=== PATIENT | female | born 1970 | race African-American/Black ===

== ENCOUNTER 2022-11-14 08:45 | Inpatient (IN) | payer MEDICAID ==
[~2022-11-14] VITALS: Ht 165.1 cm; Wt 85.7 kg
[~2022-11-14 08:45] MED LIST: ATOR10TA69 MT; DOCU-150 MT; GABA-532 MT; HYDR12.54 MT
[2022-11-14 09:19] LABS: HEMATOCRIT. 24.1 % (36.0-48.0); HEMOGLOBIN. 8.4 g/dL (12.0-16.0); MEAN CORPUSCULAR HEMOGLOBIN 37.8 pg (28.0-32.0); MEAN CORPUSCULAR VOLUME 108.6 fL (81.0-99.0); MEAN PLATELET VOLUME 8.4 fl (7.4-10.4); PLATELET 166 x1000/uL (130-400); RED BLOOD CELL COUNT 2.22 mill/uL (4.2-5.4); RED CELL DISTRIBUTION WIDTH 19.6 % (11.6-14.6)
[2022-11-14 09:29] LABS: CHLORIDE 99 mEq/L (98-107)
[2022-11-14 09:45] LABS: PLATELET ESTIMATE NORMAL
[2022-11-14] MEDS ORDERED: POTASSIUM CHLORIDE 20MEQ TABLET SR PO NR (10:45)
[2022-11-14] MEDS ORDERED: POTASSIUM CHLORIDE INJ 40 MEQ in DEXT 5% WATER 250 ML IV ONE (10:45)
[2022-11-14] MEDS: KCL 20MEQ/100ML X 2 FOR TOTAL KCL 40MEQ/200ML IV SCH ×2 (11:00→13:00)
[2022-11-14 11:34] LABS: FOLIC ACID (FOLATE) SERUM 1.4 ng/mL (>5.38)
[2022-11-14] MEDS ORDERED: FOLIC ACID 1MG TABLET PO NR (12:00)
[2022-11-14] MEDS ORDERED: IOHEXOL-350 100 ML BOTTLE ONE (12:18)
[2022-11-14] MEDS ORDERED: CYANOCOBALAMIN 1000MCG/ML VIAL IM NR (13:00)
[2022-11-14] MEDS ORDERED: DIPHENHYDRAMINE 50MG/ML VIAL IV PRN (14:45)
[2022-11-14] MEDS ORDERED: IPRATROPIUM/ALBUTEROL 0.5-3(2.5)MG/3ML NEB HHN PRN (14:45)
[2022-11-14] MEDS ORDERED: CLONIDINE 0.1MG TABLET PO PRN (14:45)
[2022-11-14] MEDS ORDERED: ONDANSETRON HCL 4MG/2ML INJ IV PRN (14:45)
[2022-11-14] MEDS ORDERED: IPRATROPIUM BROMIDE (0.02%) 0.5MG/2.5ML NEB HHN PRN (15:00)
[2022-11-14] MEDS ORDERED: ALBUTEROL (0.083%) 2.5MG/3ML NEB HHN PRN (15:00)
[2022-11-14 15:30] VITALS: BP 120/72
[2022-11-14 16:00] VITALS: BP 120/72
[2022-11-14] MEDS: SODIUM CHLORIDE 0.9% 1,000 ML IV SCH (16:11)
[2022-11-14] MEDS ORDERED: NALOXONE HCL 0.4MG/ML VIAL IV PRN (17:45)
[2022-11-14] MEDS: DOCUSATE SODIUM 100MG CAPSULE PO SCH (18:51)
[2022-11-14] MEDS: MORPHINE SULFATE 2 MG/ML CPJ (NOT FOR IM USE) IV PRN ×2 (18:51→22:51)
[2022-11-14 20:00] VITALS: BP 106/64
[2022-11-15] VITALS (9 sets, daily range): BP systolic 95–128; BP diastolic 63–83
[2022-11-15 05:58] LABS: CHLORIDE 107 mEq/L (98-107)
[2022-11-15 06:29] LABS: MEAN CORPUSCULAR HEMOGLOBIN 38.2 pg (28.0-32.0); MEAN CORPUSCULAR VOLUME 111.1 fL (81.0-99.0); MEAN PLATELET VOLUME 8.3 fl (7.4-10.4); PLATELET 160 x1000/uL (130-400); RED BLOOD CELL COUNT 1.81 mill/uL (4.2-5.4); RED CELL DISTRIBUTION WIDTH 19.9 % (11.6-14.6)
[2022-11-15 08:18] LABS: HEMATOCRIT. 20.1 % (36.0-48.0); HEMOGLOBIN. 6.9 g/dL (12.0-16.0)
[2022-11-15] MEDS: DOCUSATE SODIUM 100MG CAPSULE PO SCH ×2 (08:31→16:42)
[2022-11-15] MEDS: CYANOCOBALAMIN 1000MCG/ML VIAL IM SCH (08:31)
[2022-11-15] MEDS: MORPHINE SULFATE 2 MG/ML CPJ (NOT FOR IM USE) IV PRN ×2 (09:57→20:18)
[2022-11-15 11:34] LABS: TOTAL IRON BINDING CAPACITY 266 ug/dL (250-450)
[2022-11-15] MEDS: SODIUM CHLORIDE 0.9% 1,000 ML IV SCH (16:43)
[2022-11-15 20:59] LABS: HEMATOCRIT 22.8 % (36.0-48.0); HEMOGLOBIN 7.9 g/dL (12.0-16.0)
[2022-11-16] VITALS: BP 104/74
[2022-11-16] MEDS: SODIUM CHLORIDE 0.9% 1,000 ML IV SCH ×2 (03:30→17:01)
[2022-11-16 03:57] VITALS: BP 108/78
[2022-11-16 06:20] LABS: CHLORIDE 107 mEq/L (98-107)
[2022-11-16 06:23] LABS: HEMATOCRIT. 21.7 % (36.0-48.0); HEMOGLOBIN. 7.7 g/dL (12.0-16.0); MEAN CORPUSCULAR HEMOGLOBIN 37.4 pg (28.0-32.0); MEAN CORPUSCULAR VOLUME 105.2 fL (81.0-99.0); MEAN PLATELET VOLUME 7.9 fl (7.4-10.4); PLATELET 165 x1000/uL (130-400); RED BLOOD CELL COUNT 2.06 mill/uL (4.2-5.4); RED CELL DISTRIBUTION WIDTH 22.2 % (11.6-14.6)
[2022-11-16 08:00] VITALS: BP 106/71
[2022-11-16] MEDS ORDERED: POTASSIUM CHLORIDE 20MEQ TABLET SR PO NR (08:00)
[2022-11-16] MEDS: DOCUSATE SODIUM 100MG CAPSULE PO SCH ×2 (08:36→17:01)
[2022-11-16] MEDS: CYANOCOBALAMIN 1000MCG/ML VIAL IM SCH (08:36)
[2022-11-16] MEDS: IRON SUCROSE COMPLEX 100 MG/5 ML ML IV SCH (08:36)
[2022-11-16] MEDS: MORPHINE SULFATE 2 MG/ML CPJ (NOT FOR IM USE) IV PRN (09:42)
[2022-11-16 12:00] VITALS: BP 103/66
[2022-11-16 14:27] LABS: PLATELET ESTIMATE NORMAL
[2022-11-16 15:53] LABS: NUCLEATED RED BLOOD CELLS 1 /100 WBC; PLATELET ESTIMATE NORMAL
[2022-11-16 16:00] VITALS: BP 121/75
[2022-11-16 16:43] LABS: T4 FREE 1.22 ng/dL (0.76-1.46)
[2022-11-16] MEDS ORDERED: GADOTERATE MEGLUMINE 5 MMOL/10 ML VIAL IV ONE (19:30)
[2022-11-16 20:00] VITALS: BP 107/73
[2022-11-17 00:31] VITALS: BP 112/66
[2022-11-17 04:00] VITALS: BP 113/84
[2022-11-17] MEDS: SODIUM CHLORIDE 0.9% 1,000 ML IV SCH ×2 (06:22→16:59)
[2022-11-17 08:00] VITALS: BP 115/76
[2022-11-17] MEDS: CYANOCOBALAMIN 1000MCG/ML VIAL IM SCH (08:52)
[2022-11-17] MEDS: IRON SUCROSE COMPLEX 100 MG/5 ML ML IV SCH (08:52)
[2022-11-17] MEDS: DOCUSATE SODIUM 100MG CAPSULE PO SCH ×2 (08:52→16:59)
[2022-11-17 12:00] VITALS: BP 124/87
[2022-11-17 16:00] VITALS: BP 104/76
[2022-11-17 19:58] VITALS: BP 118/76
[2022-11-17] MEDS: MORPHINE SULFATE 2 MG/ML CPJ (NOT FOR IM USE) IV PRN (19:59)
[2022-11-17] MEDS ORDERED: FOLIC ACID 1 MG in SODIUM CHLORIDE 0.9% 500 ML IV ONE (20:00)
[2022-11-18] VITALS: BP 112/76
[2022-11-18 04:00] VITALS: BP 118/74
[2022-11-18] MEDS: SODIUM CHLORIDE 0.9% 1,000 ML IV SCH ×2 (05:18→18:45)
[2022-11-18 08:00] VITALS: BP 121/81
[2022-11-18] MEDS: DOCUSATE SODIUM 100MG CAPSULE PO SCH ×2 (09:00→17:00)
[2022-11-18] MEDS: CYANOCOBALAMIN 1000MCG/ML VIAL IM SCH (10:12)
[2022-11-18] MEDS: IRON SUCROSE COMPLEX 100 MG/5 ML ML IV SCH (10:12)
[2022-11-18] MEDS: FOLIC ACID 1MG TABLET PO SCH (10:13)
[2022-11-18 12:00] VITALS: BP 114/74
[2022-11-18 16:00] VITALS: BP 115/65
[2022-11-18 20:00] VITALS: BP 123/83
[2022-11-18] MEDS: MORPHINE SULFATE 2 MG/ML CPJ (NOT FOR IM USE) IV PRN (20:20)
[2022-11-19] VITALS: BP 108/69
[2022-11-19 04:00] VITALS: BP 117/75
[2022-11-19] MEDS: SODIUM CHLORIDE 0.9% 1,000 ML IV SCH ×2 (06:23→20:12)
[2022-11-19 08:00] VITALS: BP 116/80
[2022-11-19] MEDS: CYANOCOBALAMIN 1000MCG/ML VIAL IM SCH (08:11)
[2022-11-19] MEDS: DOCUSATE SODIUM 100MG CAPSULE PO SCH ×3 (08:11→17:00)
[2022-11-19] MEDS: FOLIC ACID 1MG TABLET PO SCH (08:11)
[2022-11-19] MEDS: MORPHINE SULFATE 2 MG/ML CPJ (NOT FOR IM USE) IV PRN ×2 (10:37→21:35)
[2022-11-19 12:00] VITALS: BP 125/86
[2022-11-19 16:00] VITALS: BP 125/84
[2022-11-19 16:08] LABS: BASOPHILS % 0.4 % (0.0-2.0); EOSINOPHILS % 1.2 % (0.0-5.0); HEMATOCRIT. 30.4 % (36.0-48.0); LYMPHOCYTES % 43.7 % (20.0-50.0); MEAN CORPUSCULAR HEMOGLOBIN 35.3 pg (28.0-32.0); MEAN CORPUSCULAR VOLUME 107.2 fL (81.0-99.0); MEAN PLATELET VOLUME 8.6 fl (7.4-10.4); NEUTROPHILS % 45.7 % (40.0-76.0); PLATELET 308 x1000/uL (130-400); RED BLOOD CELL COUNT 2.83 mill/uL (4.2-5.4); RED CELL DISTRIBUTION WIDTH 20.8 % (11.6-14.6)
[2022-11-19 16:30] LABS: CHLORIDE 107 mEq/L (98-107)
[2022-11-19 20:00] VITALS: BP 101/72
[2022-11-19] MEDS: ACETAMINOPHEN 325MG TABLET PO PRN (21:16)
[2022-11-20] VITALS: BP 111/88
[2022-11-20 04:00] VITALS: BP 131/68
[2022-11-20 08:00] VITALS: BP 128/88
[2022-11-20] MEDS: FOLIC ACID 1MG TABLET PO SCH (08:48)
[2022-11-20] MEDS: DOCUSATE SODIUM 100MG CAPSULE PO SCH ×2 (08:48→17:00)
[2022-11-20] MEDS: CYANOCOBALAMIN 1000MCG/ML VIAL IM SCH (08:48)
[2022-11-20] MEDS: SODIUM CHLORIDE 0.9% 1,000 ML IV SCH ×2 (08:48→21:22)
[2022-11-20] MEDS ORDERED: FOLI-43 PO (11:06)
[2022-11-20 12:00] VITALS: BP 119/89
[2022-11-20 16:00] VITALS: BP 111/81
[2022-11-20 20:00] VITALS: BP 130/88
[2022-11-20] MEDS: MORPHINE SULFATE 2 MG/ML CPJ (NOT FOR IM USE) IV PRN (21:38)
[2022-11-21] VITALS: BP 124/69
[2022-11-21 04:00] VITALS: BP 115/77
[2022-11-21 08:00] VITALS: BP 125/83
[2022-11-21] MEDS: FOLIC ACID 1MG TABLET PO SCH (09:46)
[2022-11-21] MEDS: DOCUSATE SODIUM 100MG CAPSULE PO SCH ×2 (09:46→17:00)
[2022-11-21] MEDS: SODIUM CHLORIDE 0.9% 1,000 ML IV SCH (09:46)
[2022-11-21 12:00] VITALS: BP 122/82
[2022-11-21] MEDS ORDERED: CYANOCOBALAMIN 1000MCG/ML VIAL IM NR (15:45)
[2022-11-21 16:00] VITALS: BP 127/89
[2022-11-21 19:57] VITALS: BP 128/89
[2022-11-21] MEDS: MORPHINE SULFATE 2 MG/ML CPJ (NOT FOR IM USE) IV PRN (20:21)
[2022-11-22] VITALS (7 sets, daily range): BP systolic 111–144; BP diastolic 63–91
[2022-11-22] MEDS: SODIUM CHLORIDE 0.9% 1,000 ML IV SCH ×3 (02:56→21:41)
[2022-11-22] MEDS: FOLIC ACID 1MG TABLET PO SCH (09:01)
[2022-11-22] MEDS: DOCUSATE SODIUM 100MG CAPSULE PO SCH ×2 (09:02→17:00)
[2022-11-22] MEDS: MORPHINE SULFATE 2 MG/ML CPJ (NOT FOR IM USE) IV PRN (21:42)
[2022-11-23 04:00] VITALS: BP 130/85
[2022-11-23 08:00] VITALS: BP 142/90
[2022-11-23] MEDS: DOCUSATE SODIUM 100MG CAPSULE PO SCH ×2 (08:38→16:24)
[2022-11-23] MEDS: FOLIC ACID 1MG TABLET PO SCH (08:38)
[2022-11-23] MEDS: SODIUM CHLORIDE 0.9% 1,000 ML IV SCH (11:01)
[2022-11-23 12:00] VITALS: BP 137/100
[2022-11-23 16:00] VITALS: BP 134/91
[2022-11-23] MEDS: ACETAMINOPHEN 325MG TABLET PO PRN (16:24)
[2022-11-23 20:00] VITALS: BP 122/71
[2022-11-23] MEDS: MORPHINE SULFATE 2 MG/ML CPJ (NOT FOR IM USE) IV PRN (21:38)
[2022-11-23 22:04] VITALS: BP 122/71
== END 2022-11-23 22:42 | DRG 663 ==
LOC: ER 08:45 → MICUSO 13:05 → EDBEDREQTM 13:36 → EDBEDREQ 13:36 → 8WST 15:34
PROVIDERS: ADMIT Internal Medicine; ATTEND Internal Medicine
PROC: 30233N1 Transfusion of Nonautologous Red Blood Cells into Peripheral Vein, Percutaneous Approach (ICD-10-PCS; principal; 2022-11-15)
DX: D51.3 Other dietary vitamin B12 deficiency anemia (principal); D68.69 Other thrombophilia; E78.00 Pure hypercholesterolemia, unspecified; E87.6 Hypokalemia; I10 Essential (primary) hypertension; J45.909 Unspecified asthma, uncomplicated; Z20.822 Contact with and (suspected) exposure to COVID-19; M47.9 Spondylosis, unspecified; Z96.649 Presence of unspecified artificial hip joint; Z96.651 Presence of right artificial knee joint; Z79.899 Other long term (current) drug therapy; E86.0 Dehydration; D52.9 Folate deficiency anemia, unspecified
CPT/HCPCS: 36415; 70553; 71045; 71275; 72141; 72146; 72148; 80048; 80053; 82607; 82746; 83540; 83550; 83880; 84439; 84443; 84484; 85014; 85018; 85025; 85379; 86340; 86850; 86900; 86920; 87426; 93005; 93970; 97110; 97162; 97166; 97530; 97535; 99285; A9577; C1893; C9803; J2270; J3420; J3480; J3490; J7030; J7040; L1830; P9016; Q9967

== ENCOUNTER 2022-11-23 22:25 | Inpatient (IN) | payer MEDICAID ==
[~2022-11-23] VITALS: Ht 165.1 cm; Wt 90.7 kg
[2022-11-23 22:25] VITALS: BP 135/90
[~2022-11-23 22:25] MED LIST changes: +FOLI-43 PO
[2022-11-24] VITALS: BP 133/85
[2022-11-24] MEDS ORDERED: DIPHENHYDRAMINE 50MG/ML VIAL IM PRN
[2022-11-24] MEDS ORDERED: CLONIDINE 0.1MG TABLET PO PRN
[2022-11-24] MEDS ORDERED: NALOXONE HCL 0.4 MG/ML 1ML VIAL IV PRN
[2022-11-24] MEDS ORDERED: ACETAMINOPHEN 650MG/20.3ML UDC PO PRN
[2022-11-24] MEDS ORDERED: ONDANSETRON HCL 4MG/2ML INJ IV PRN
[2022-11-24] MEDS: MORPHINE SULFATE 2 MG/ML CPJ (NOT FOR IM USE) IV PRN (05:38)
[2022-11-24 07:00] LABS: BASOPHILS % 0.6 % (0.0-2.0); EOSINOPHILS % 1.4 % (0.0-5.0); HEMATOCRIT. 27.1 % (36.0-48.0); HEMOGLOBIN. 9.1 g/dL (12.0-16.0); LYMPHOCYTES % 26.4 % (20.0-50.0); MEAN CORPUSCULAR HEMOGLOBIN 34.8 pg (28.0-32.0); MEAN CORPUSCULAR VOLUME 103.2 fL (81.0-99.0); MONOCYTES % 9.3 % (2.0-8.0); NEUTROPHILS % 62.3 % (40.0-76.0); PLATELET 269 x1000/uL (130-400); RED BLOOD CELL COUNT 2.62 mill/uL (4.2-5.4); RED CELL DISTRIBUTION WIDTH 20.3 % (11.6-14.6)
[2022-11-24 08:00] VITALS: BP 137/86
[2022-11-24] MEDS: DOCUSATE SODIUM 100MG CAPSULE PO SCH ×2 (08:18→16:59)
[2022-11-24] MEDS: FOLIC ACID 1MG TABLET PO SCH (08:18)
[2022-11-24 08:24] LABS: CHLORIDE 110 mEq/L (98-107)
[2022-11-24] MEDS: SODIUM CHLORIDE 0.9% 1,000 ML IV SCH ×2 (12:15)
[2022-11-24] MEDS: HYDROCODONE/ACETAMINOPHEN 5/325MG TABLET PO PRN ×2 (12:25→21:44)
[2022-11-24] MEDS: CYANOCOBALAMIN 1000MCG/ML VIAL IM SCH (16:59)
[2022-11-24 20:00] VITALS: BP 136/99
[2022-11-25] MEDS: MORPHINE SULFATE 2 MG/ML CPJ (NOT FOR IM USE) IV PRN (00:30)
[2022-11-25] MEDS: SODIUM CHLORIDE 0.9% 1,000 ML IV SCH ×2 (01:00→13:30)
[2022-11-25 07:07] LABS: BASOPHILS % 0.7 % (0.0-2.0); CHLORIDE 110 mEq/L (98-107); EOSINOPHILS % 2.4 % (0.0-5.0); HEMATOCRIT. 26.5 % (36.0-48.0); HEMOGLOBIN. 8.9 g/dL (12.0-16.0); LYMPHOCYTES % 34.8 % (20.0-50.0); MEAN CORPUSCULAR HEMOGLOBIN 34.2 pg (28.0-32.0); MEAN CORPUSCULAR VOLUME 102.4 fL (81.0-99.0); NEUTROPHILS % 50.1 % (40.0-76.0); PLATELET 255 x1000/uL (130-400); RED BLOOD CELL COUNT 2.59 mill/uL (4.2-5.4)
[2022-11-25 08:00] VITALS: BP 139/97
[2022-11-25] MEDS ORDERED: POTASSIUM CHLORIDE 10MEQ TABLET SR PO NR (08:30)
[2022-11-25] MEDS: DOCUSATE SODIUM 100MG CAPSULE PO SCH ×2 (09:14→17:58)
[2022-11-25] MEDS: FOLIC ACID 1MG TABLET PO SCH (09:14)
[2022-11-25] MEDS: CYANOCOBALAMIN 1000MCG/ML VIAL IM SCH (09:14)
[2022-11-25] MEDS: HYDROCODONE/ACETAMINOPHEN 10/325MG TABLET PO PRN (15:05)
[2022-11-26] MEDS: HYDROCODONE/ACETAMINOPHEN 10/325MG TABLET PO PRN ×2 (00:03→18:05)
[2022-11-26] MEDS: SODIUM CHLORIDE 0.9% 1,000 ML IV SCH ×2 (02:00→12:38)
[2022-11-26] MEDS: MORPHINE SULFATE 2 MG/ML CPJ (NOT FOR IM USE) IV PRN ×2 (04:02→22:20)
[2022-11-26 08:35] VITALS: BP 122/76
[2022-11-26] MEDS: ASCORBIC ACID 500 MG TABLET PO SCH ×2 (09:00→17:56)
[2022-11-26] MEDS: FERROUS SULFATE 325MG TABLET PO SCH ×2 (09:00→17:56)
[2022-11-26] MEDS: DOCUSATE SODIUM 100MG CAPSULE PO SCH ×2 (09:00→17:56)
[2022-11-26] MEDS: FOLIC ACID 1MG TABLET PO SCH (09:00)
[2022-11-26] MEDS: CYANOCOBALAMIN 1000MCG/ML VIAL IM SCH (09:00)
[2022-11-26 20:00] VITALS: BP 151/95
[2022-11-27] MEDS: SODIUM CHLORIDE 0.9% 1,000 ML IV SCH ×2 (02:30→14:45)
[2022-11-27 05:58] LABS: BASOPHILS % 0.7 % (0.0-2.0); EOSINOPHILS % 1.3 % (0.0-5.0); HEMOGLOBIN. 9.1 g/dL (12.0-16.0); LYMPHOCYTES % 29.2 % (20.0-50.0); MEAN CORPUSCULAR HEMOGLOBIN 32.8 pg (28.0-32.0); MEAN CORPUSCULAR VOLUME 100.6 fL (81.0-99.0); MEAN PLATELET VOLUME 8.8 fl (7.4-10.4); MONOCYTES % 10.1 % (2.0-8.0); NEUTROPHILS % 58.7 % (40.0-76.0); PLATELET 233 x1000/uL (130-400); RED BLOOD CELL COUNT 2.78 mill/uL (4.2-5.4)
[2022-11-27 06:09] LABS: CHLORIDE 109 mEq/L (98-107)
[2022-11-27 08:00] VITALS: BP 135/91
[2022-11-27] MEDS: DOCUSATE SODIUM 100MG CAPSULE PO SCH ×2 (09:00→18:03)
[2022-11-27] MEDS: ASCORBIC ACID 500 MG TABLET PO SCH ×2 (10:11→18:03)
[2022-11-27] MEDS: CYANOCOBALAMIN 1000MCG/ML VIAL IM SCH (10:11)
[2022-11-27] MEDS: FOLIC ACID 1MG TABLET PO SCH (10:11)
[2022-11-27] MEDS: FERROUS SULFATE 325MG TABLET PO SCH ×2 (10:11→18:03)
[2022-11-27] MEDS: HYDROCODONE/ACETAMINOPHEN 10/325MG TABLET PO PRN (15:01)
[2022-11-27 19:30] VITALS: BP 132/78
[2022-11-27] MEDS: MORPHINE SULFATE 2 MG/ML CPJ (NOT FOR IM USE) IV PRN (22:54)
[2022-11-28] MEDS: SODIUM CHLORIDE 0.9% 1,000 ML IV SCH ×2 (04:00→16:30)
[2022-11-28 08:00] VITALS: BP 138/88
[2022-11-28] MEDS ORDERED: CYANOCOBALAMIN 1000MCG/ML VIAL IM SCH (09:00)
[2022-11-28] MEDS: FERROUS SULFATE 325MG TABLET PO SCH ×2 (10:21→18:10)
[2022-11-28] MEDS: CYANOCOBALAMIN 1000MCG/ML VIAL IM SCH (10:22)
[2022-11-28] MEDS: FOLIC ACID 1MG TABLET PO SCH (10:22)
[2022-11-28] MEDS: ASCORBIC ACID 500 MG TABLET PO SCH ×2 (10:22→18:10)
[2022-11-28] MEDS: DOCUSATE SODIUM 100MG CAPSULE PO SCH ×2 (10:22→18:10)
[2022-11-28] MEDS: HYDROCODONE/ACETAMINOPHEN 10/325MG TABLET PO PRN (16:34)
[2022-11-28 19:38] VITALS: BP 163/102
[2022-11-28] MEDS: MIRTAZAPINE 15MG TABLET PO SCH ×2 (21:52→21:53)
[2022-11-28] MEDS: MORPHINE SULFATE 2 MG/ML CPJ (NOT FOR IM USE) IV PRN (22:50)
[2022-11-29] MEDS: SODIUM CHLORIDE 0.9% 1,000 ML IV SCH ×2 (05:00→17:30)
[2022-11-29 08:00] VITALS: BP 135/92
[2022-11-29] MEDS: CYANOCOBALAMIN 1000MCG/ML VIAL IM SCH (08:11)
[2022-11-29] MEDS: DOCUSATE SODIUM 100MG CAPSULE PO SCH ×2 (08:33→17:35)
[2022-11-29] MEDS: ASCORBIC ACID 500 MG TABLET PO SCH ×2 (08:33→17:35)
[2022-11-29] MEDS: FOLIC ACID 1MG TABLET PO SCH (08:34)
[2022-11-29] MEDS: FERROUS SULFATE 325MG TABLET PO SCH ×2 (08:34→17:35)
[2022-11-29] MEDS ORDERED: NALOXONE HCL 0.4MG/ML VIAL IV PRN (09:45)
[2022-11-29] MEDS: HYDROCODONE/ACETAMINOPHEN 10/325MG TABLET PO PRN ×2 (15:56→22:01)
[2022-11-29] MEDS: DIPHENHYDRAMINE 25MG CAPSULE PO PRN (17:35)
[2022-11-29 20:00] VITALS: BP 134/91
[2022-11-29] MEDS: MIRTAZAPINE 15MG TABLET PO SCH (22:01)
[2022-11-30] MEDS: SODIUM CHLORIDE 0.9% 1,000 ML IV SCH ×2 (06:00→17:37)
[2022-11-30 08:00] VITALS: BP 140/84
[2022-11-30] MEDS: HYDROCODONE/ACETAMINOPHEN 10/325MG TABLET PO PRN ×3 (08:23→21:37)
[2022-11-30] MEDS: ASCORBIC ACID 500 MG TABLET PO SCH ×2 (09:19→16:17)
[2022-11-30] MEDS: FERROUS SULFATE 325MG TABLET PO SCH ×2 (09:19→16:17)
[2022-11-30] MEDS: DOCUSATE SODIUM 100MG CAPSULE PO SCH ×2 (09:19→17:00)
[2022-11-30] MEDS: FOLIC ACID 1MG TABLET PO SCH (09:20)
[2022-11-30] MEDS: CYANOCOBALAMIN 1000MCG/ML VIAL IM SCH (09:20)
[2022-11-30 20:00] VITALS: BP 125/81
[2022-11-30] MEDS: TRAZODONE HCL 50MG TABLET PO SCH (21:25)
[2022-12-01] MEDS: SODIUM CHLORIDE 0.9% 1,000 ML IV SCH ×2 (07:49→19:30)
[2022-12-01 08:00] VITALS: BP 122/81
[2022-12-01] MEDS: FOLIC ACID 1MG TABLET PO SCH (08:30)
[2022-12-01] MEDS: ASCORBIC ACID 500 MG TABLET PO SCH ×2 (08:30→18:06)
[2022-12-01] MEDS: DOCUSATE SODIUM 100MG CAPSULE PO SCH ×2 (08:30→18:05)
[2022-12-01] MEDS: FERROUS SULFATE 325MG TABLET PO SCH ×2 (08:30→17:00)
[2022-12-01] MEDS: HYDROCODONE/ACETAMINOPHEN 10/325MG TABLET PO PRN ×3 (08:31→21:24)
[2022-12-01 19:35] VITALS: BP 119/80
[2022-12-01] MEDS: MIRTAZAPINE 15MG TABLET PO SCH (21:13)
[2022-12-01] MEDS: TRAZODONE HCL 50MG TABLET PO SCH (21:14)
[2022-12-02 08:00] VITALS: BP 123/69
[2022-12-02] MEDS: SODIUM CHLORIDE 0.9% 1,000 ML IV SCH (08:00)
[2022-12-02] MEDS: FERROUS SULFATE 325MG TABLET PO SCH ×2 (09:00→17:00)
[2022-12-02] MEDS: ASCORBIC ACID 500 MG TABLET PO SCH ×2 (09:13→17:50)
[2022-12-02] MEDS: FOLIC ACID 1MG TABLET PO SCH (09:13)
[2022-12-02] MEDS: HYDROCODONE/ACETAMINOPHEN 10/325MG TABLET PO PRN ×2 (09:15→17:52)
[2022-12-02] MEDS: DOCUSATE SODIUM 100MG CAPSULE PO SCH ×2 (09:15→17:50)
[2022-12-02 20:00] VITALS: BP 138/90
[2022-12-02] MEDS: TRAZODONE HCL 50MG TABLET PO SCH (21:45)
[2022-12-02] MEDS: MIRTAZAPINE 15MG TABLET PO SCH (21:45)
[2022-12-03 08:00] VITALS: BP 133/85
[2022-12-03] MEDS: DOCUSATE SODIUM 100MG CAPSULE PO SCH ×3 (09:00→16:46)
[2022-12-03] MEDS: SODIUM CHLORIDE 0.9% 1,000 ML IV SCH ×2 (09:07→21:30)
[2022-12-03] MEDS: ASCORBIC ACID 500 MG TABLET PO SCH ×2 (09:08→16:45)
[2022-12-03] MEDS: FOLIC ACID 1MG TABLET PO SCH (09:10)
[2022-12-03] MEDS: FERROUS SULFATE 325MG TABLET PO SCH ×2 (09:10→16:46)
[2022-12-03] MEDS: HYDROCODONE/ACETAMINOPHEN 10/325MG TABLET PO PRN ×2 (14:08→21:34)
[2022-12-03 20:00] VITALS: BP 142/88
[2022-12-03] MEDS: MIRTAZAPINE 15MG TABLET PO SCH (21:31)
[2022-12-03] MEDS: TRAZODONE HCL 50MG TABLET PO SCH (21:32)
[2022-12-04 08:00] VITALS: BP 143/95
[2022-12-04] MEDS: DOCUSATE SODIUM 100MG CAPSULE PO SCH ×2 (09:11→16:57)
[2022-12-04] MEDS: FERROUS SULFATE 325MG TABLET PO SCH ×2 (09:11→16:57)
[2022-12-04] MEDS: FOLIC ACID 1MG TABLET PO SCH (09:11)
[2022-12-04] MEDS: ASCORBIC ACID 500 MG TABLET PO SCH ×2 (09:12→16:57)
[2022-12-04] MEDS: HYDROCODONE/ACETAMINOPHEN 10/325MG TABLET PO PRN (09:12)
[2022-12-04] MEDS: SODIUM CHLORIDE 0.9% 1,000 ML IV SCH (10:00)
[2022-12-04 20:00] VITALS: BP 141/96
[2022-12-05] MEDS: ONDANSETRON 4MG ODT SL PRN ×3 (00:23→19:01)
[2022-12-05] MEDS: MIRTAZAPINE 15MG TABLET PO SCH ×2 (00:40→20:59)
[2022-12-05] MEDS: TRAZODONE HCL 50MG TABLET PO SCH ×2 (00:40→15:36)
[2022-12-05 08:00] VITALS: BP 118/63
[2022-12-05] MEDS: DOCUSATE SODIUM 100MG CAPSULE PO SCH ×2 (09:00→17:46)
[2022-12-05] MEDS: ASCORBIC ACID 500 MG TABLET PO SCH ×2 (09:11→17:47)
[2022-12-05] MEDS: FOLIC ACID 1MG TABLET PO SCH (09:11)
[2022-12-05] MEDS: FERROUS SULFATE 325MG TABLET PO SCH ×2 (09:12→17:46)
[2022-12-05] MEDS ORDERED: NALOXONE HCL 0.4MG/ML VIAL IV PRN (18:45)
[2022-12-05] MEDS: HYDROCODONE/ACETAMINOPHEN 10/325MG TABLET PO PRN (19:00)
[2022-12-05 20:16] VITALS: BP 124/90
[2022-12-05] MEDS: SODIUM CHLORIDE 0.9% 1,000 ML IV SCH (22:54)
[2022-12-06 08:00] VITALS: BP 130/86
[2022-12-06] MEDS: DOCUSATE SODIUM 100MG CAPSULE PO SCH ×2 (08:23→17:06)
[2022-12-06] MEDS: FOLIC ACID 1MG TABLET PO SCH (08:24)
[2022-12-06] MEDS: ASCORBIC ACID 500 MG TABLET PO SCH ×2 (08:25→17:09)
[2022-12-06] MEDS: FERROUS SULFATE 325MG TABLET PO SCH ×2 (08:25→17:09)
[2022-12-06] MEDS: HYDROCODONE/ACETAMINOPHEN 10/325MG TABLET PO PRN ×3 (08:28→22:15)
[2022-12-06] MEDS: DIPHENHYDRAMINE 25MG CAPSULE PO PRN (14:39)
[2022-12-06] MEDS: SODIUM CHLORIDE 0.9% 1,000 ML IV SCH (14:42)
[2022-12-06 19:47] VITALS: BP 131/84
[2022-12-06] MEDS: MIRTAZAPINE 15MG TABLET PO SCH (22:08)
[2022-12-06] MEDS: TRAZODONE HCL 50MG TABLET PO SCH (22:09)
[2022-12-07] MEDS: SODIUM CHLORIDE 0.9% 1,000 ML IV SCH ×2 (00:30→13:00)
[2022-12-07 08:00] VITALS: BP 122/80
[2022-12-07] MEDS: ASCORBIC ACID 500 MG TABLET PO SCH ×2 (08:28→17:29)
[2022-12-07] MEDS: FOLIC ACID 1MG TABLET PO SCH (08:28)
[2022-12-07] MEDS: HYDROCODONE/ACETAMINOPHEN 10/325MG TABLET PO PRN ×3 (08:28→22:55)
[2022-12-07] MEDS: DOCUSATE SODIUM 100MG CAPSULE PO SCH ×2 (08:28→17:29)
[2022-12-07] MEDS: FERROUS SULFATE 325MG TABLET PO SCH ×2 (08:29→17:29)
[2022-12-07] MEDS ORDERED: CYANOCOBALAMIN 1000MCG/ML VIAL IM NR (09:00)
[2022-12-07] MEDS ORDERED: FUROSEMIDE 20MG TABLET PO NR (17:15)
[2022-12-07 20:00] VITALS: BP 111/79
[2022-12-07] MEDS: TRAZODONE HCL 50MG TABLET PO SCH (21:46)
[2022-12-07] MEDS: MIRTAZAPINE 15MG TABLET PO SCH (21:46)
[2022-12-08] MEDS: SODIUM CHLORIDE 0.9% 1,000 ML IV SCH ×2 (01:30→14:00)
[2022-12-08 06:32] LABS: BASOPHILS % 0.8 % (0.0-2.0); EOSINOPHILS % 1.7 % (0.0-5.0); HEMATOCRIT. 31.8 % (36.0-48.0); HEMOGLOBIN. 10.6 g/dL (12.0-16.0); LYMPHOCYTES % 39.6 % (20.0-50.0); MEAN CORPUSCULAR HEMOGLOBIN 31.5 pg (28.0-32.0); MEAN CORPUSCULAR VOLUME 94.9 fL (81.0-99.0); MEAN PLATELET VOLUME 9.6 fl (7.4-10.4); MONOCYTES % 9.4 % (2.0-8.0); NEUTROPHILS % 48.5 % (40.0-76.0); PLATELET 170 x1000/uL (130-400); RED BLOOD CELL COUNT 3.35 mill/uL (4.2-5.4); RED CELL DISTRIBUTION WIDTH 17.8 % (11.6-14.6)
[2022-12-08 08:00] VITALS: BP 130/93
[2022-12-08 08:08] LABS: CHLORIDE 104 mEq/L (98-107)
[2022-12-08] MEDS: FERROUS SULFATE 325MG TABLET PO SCH ×2 (09:03→17:11)
[2022-12-08] MEDS: ASCORBIC ACID 500 MG TABLET PO SCH ×2 (09:03→17:11)
[2022-12-08] MEDS: DOCUSATE SODIUM 100MG CAPSULE PO SCH ×2 (09:03→17:10)
[2022-12-08] MEDS: FOLIC ACID 1MG TABLET PO SCH (09:03)
[2022-12-08] MEDS: HYDROCODONE/ACETAMINOPHEN 10/325MG TABLET PO PRN ×3 (09:14→23:24)
[2022-12-08] MEDS ORDERED: POTASSIUM CHLORIDE 10MEQ TABLET SR PO NR (15:45)
[2022-12-08 20:00] VITALS: BP 118/72
[2022-12-08] MEDS: MIRTAZAPINE 15MG TABLET PO SCH (21:40)
[2022-12-08] MEDS: DIPHENHYDRAMINE 25MG CAPSULE PO PRN (21:40)
[2022-12-08] MEDS: TRAZODONE HCL 50MG TABLET PO SCH (21:40)
[2022-12-09 08:00] VITALS: BP 118/81
[2022-12-09] MEDS: DOCUSATE SODIUM 100MG CAPSULE PO SCH ×2 (08:31→16:41)
[2022-12-09] MEDS: FOLIC ACID 1MG TABLET PO SCH (08:32)
[2022-12-09] MEDS: FERROUS SULFATE 325MG TABLET PO SCH ×2 (08:32→16:41)
[2022-12-09] MEDS: HYDROCODONE/ACETAMINOPHEN 5/325MG TABLET PO PRN ×2 (08:35→16:58)
[2022-12-09] MEDS: ASCORBIC ACID 500 MG TABLET PO SCH ×2 (09:00→16:41)
[2022-12-09] MEDS: SODIUM CHLORIDE 0.9% 1,000 ML IV SCH (15:00)
[2022-12-09] MEDS: HYDROCODONE/ACETAMINOPHEN 10/325MG TABLET PO PRN ×2 (16:54→23:01)
[2022-12-09 20:02] VITALS: BP 113/79
[2022-12-09] MEDS: MIRTAZAPINE 15MG TABLET PO SCH (20:36)
[2022-12-09] MEDS: TRAZODONE HCL 50MG TABLET PO SCH (20:36)
[2022-12-10 08:00] VITALS: BP 120/88
[2022-12-10] MEDS: DOCUSATE SODIUM 100MG CAPSULE PO SCH (09:12)
[2022-12-10] MEDS: HYDROCODONE/ACETAMINOPHEN 10/325MG TABLET PO PRN ×3 (09:13→22:18)
[2022-12-10] MEDS: FOLIC ACID 1MG TABLET PO SCH (09:14)
[2022-12-10] MEDS: ASCORBIC ACID 500 MG TABLET PO SCH ×2 (09:14→17:34)
[2022-12-10] MEDS: FERROUS SULFATE 325MG TABLET PO SCH ×2 (09:14→17:33)
[2022-12-10] MEDS: POLYETHYLENE GLYCOL 3350 (17GM) 1 DOSE PACK PO SCH (16:11)
[2022-12-10] MEDS: DOCUSATE SODIUM 250MG CAPSULE PO SCH ×2 (16:11→17:00)
[2022-12-10] MEDS: DIPHENHYDRAMINE 25MG CAPSULE PO PRN (18:50)
[2022-12-10 19:38] VITALS: BP 124/81
[2022-12-10] MEDS: MIRTAZAPINE 15MG TABLET PO SCH (20:43)
[2022-12-10] MEDS: TRAZODONE HCL 50MG TABLET PO SCH (20:44)
[2022-12-11 08:00] VITALS: BP 128/78
[2022-12-11] MEDS: DOCUSATE SODIUM 250MG CAPSULE PO SCH ×2 (10:45→17:14)
[2022-12-11] MEDS: FOLIC ACID 1MG TABLET PO SCH (10:45)
[2022-12-11] MEDS: FERROUS SULFATE 325MG TABLET PO SCH ×2 (10:45→17:14)
[2022-12-11] MEDS: POLYETHYLENE GLYCOL 3350 (17GM) 1 DOSE PACK PO SCH (10:45)
[2022-12-11] MEDS: ASCORBIC ACID 500 MG TABLET PO SCH ×2 (10:46→17:14)
[2022-12-11] MEDS ORDERED: NALOXONE HCL 0.4MG/ML VIAL IV PRN ×2 (11:15→15:45)
[2022-12-11] MEDS: HYDROCODONE/ACETAMINOPHEN 5/325MG TABLET PO PRN (13:03)
[2022-12-11] MEDS ORDERED: SORBITOL 70% SOLN 30ML PO NR (15:30)
[2022-12-11 20:00] VITALS: BP 130/85
[2022-12-11] MEDS: MIRTAZAPINE 15MG TABLET PO SCH (21:00)
[2022-12-11] MEDS: TRAZODONE HCL 50MG TABLET PO SCH (22:06)
[2022-12-12] MEDS: HYDROCODONE/ACETAMINOPHEN 5/325MG TABLET PO PRN ×4 (01:09→22:52)
[2022-12-12 08:00] VITALS: BP 126/77
[2022-12-12] MEDS: POLYETHYLENE GLYCOL 3350 (17GM) 1 DOSE PACK PO SCH (09:00)
[2022-12-12] MEDS: DOCUSATE SODIUM 250MG CAPSULE PO SCH ×3 (09:00→15:41)
[2022-12-12] MEDS: FOLIC ACID 1MG TABLET PO SCH (09:00)
[2022-12-12] MEDS: FERROUS SULFATE 325MG TABLET PO SCH ×2 (09:45→16:16)
[2022-12-12] MEDS: ASCORBIC ACID 500 MG TABLET PO SCH ×2 (09:57→16:16)
[2022-12-12 20:00] VITALS: BP 108/62
[2022-12-12] MEDS: TRAZODONE HCL 50MG TABLET PO SCH (21:55)
[2022-12-12] MEDS: NEOMY SULF/BACITRAC ZN/POLY OINT 28GM TOP SCH (21:56)
[2022-12-12] MEDS: MIRTAZAPINE 15MG TABLET PO SCH (21:56)
[2022-12-13] MEDS: DOCUSATE SODIUM 250MG CAPSULE PO SCH ×2 (08:42→16:29)
[2022-12-13] MEDS: FERROUS SULFATE 325MG TABLET PO SCH ×2 (08:43→16:29)
[2022-12-13] MEDS: FOLIC ACID 1MG TABLET PO SCH (08:43)
[2022-12-13] MEDS: ASCORBIC ACID 500 MG TABLET PO SCH ×2 (08:46→16:29)
[2022-12-13] MEDS: NEOMY SULF/BACITRAC ZN/POLY OINT 28GM TOP SCH ×2 (08:46→21:00)
[2022-12-13] MEDS: HYDROCODONE/ACETAMINOPHEN 5/325MG TABLET PO PRN ×4 (08:50→22:14)
[2022-12-13] MEDS: POLYETHYLENE GLYCOL 3350 (17GM) 1 DOSE PACK PO SCH (09:00)
[2022-12-13 10:35] VITALS: BP 119/88
[2022-12-13 20:00] VITALS: BP 125/81
[2022-12-13] MEDS: TRAZODONE HCL 50MG TABLET PO SCH (22:06)
[2022-12-13] MEDS: MIRTAZAPINE 15MG TABLET PO SCH (22:06)
[2022-12-14 05:40] LABS: BASOPHILS % 0.7 % (0.0-2.0); EOSINOPHILS % 1.5 % (0.0-5.0); HEMATOCRIT. 31.7 % (36.0-48.0); HEMOGLOBIN. 10.5 g/dL (12.0-16.0); LYMPHOCYTES % 41.7 % (20.0-50.0); MEAN CORPUSCULAR HEMOGLOBIN 30.3 pg (28.0-32.0); MEAN CORPUSCULAR VOLUME 91.8 fL (81.0-99.0); MEAN PLATELET VOLUME 9.9 fl (7.4-10.4); MONOCYTES % 9.1 % (2.0-8.0); PLATELET 189 x1000/uL (130-400); RED BLOOD CELL COUNT 3.45 mill/uL (4.2-5.4); RED CELL DISTRIBUTION WIDTH 16.8 % (11.6-14.6)
[2022-12-14 08:04] LABS: CHLORIDE 105 mEq/L (98-107)
[2022-12-14] MEDS: POLYETHYLENE GLYCOL 3350 (17GM) 1 DOSE PACK PO SCH ×2 (09:00→10:46)
[2022-12-14 10:41] VITALS: BP 120/73
[2022-12-14] MEDS: ASCORBIC ACID 500 MG TABLET PO SCH ×2 (10:46→18:29)
[2022-12-14] MEDS: FERROUS SULFATE 325MG TABLET PO SCH ×2 (10:46→18:29)
[2022-12-14] MEDS: DOCUSATE SODIUM 250MG CAPSULE PO SCH ×2 (10:46→18:29)
[2022-12-14] MEDS: NEOMY SULF/BACITRAC ZN/POLY OINT 28GM TOP SCH ×2 (10:46→21:00)
[2022-12-14] MEDS: FOLIC ACID 1MG TABLET PO SCH (10:46)
[2022-12-14] MEDS: HYDROCODONE/ACETAMINOPHEN 5/325MG TABLET PO PRN ×3 (11:03→22:25)
[2022-12-14] MEDS ORDERED: CYANOCOBALAMIN 1000MCG/ML VIAL IM SCH (12:30)
[2022-12-14] MEDS ORDERED: POTASSIUM CHLORIDE 20MEQ TABLET SR PO NR (17:00)
[2022-12-14 20:00] VITALS: BP 115/82
[2022-12-14] MEDS: TRAZODONE HCL 50MG TABLET PO SCH (22:18)
[2022-12-14] MEDS: MIRTAZAPINE 15MG TABLET PO SCH (22:18)
[2022-12-15 08:00] VITALS: BP 121/78
[2022-12-15] MEDS: ASCORBIC ACID 500 MG TABLET PO SCH ×2 (09:53→17:46)
[2022-12-15] MEDS: POLYETHYLENE GLYCOL 3350 (17GM) 1 DOSE PACK PO SCH (09:54)
[2022-12-15] MEDS: NEOMY SULF/BACITRAC ZN/POLY OINT 28GM TOP SCH ×2 (09:54→21:00)
[2022-12-15] MEDS: FERROUS SULFATE 325MG TABLET PO SCH ×2 (09:54→17:46)
[2022-12-15] MEDS: FOLIC ACID 1MG TABLET PO SCH (09:54)
[2022-12-15] MEDS: DOCUSATE SODIUM 250MG CAPSULE PO SCH ×2 (09:54→17:46)
[2022-12-15] MEDS: HYDROCODONE/ACETAMINOPHEN 5/325MG TABLET PO PRN ×2 (11:04→23:01)
[2022-12-15 20:00] VITALS: BP 105/76
[2022-12-15] MEDS: MIRTAZAPINE 15MG TABLET PO SCH (23:00)
[2022-12-15] MEDS: TRAZODONE HCL 50MG TABLET PO SCH (23:00)
[2022-12-16 08:00] VITALS: BP 111/77
[2022-12-16] MEDS: NEOMY SULF/BACITRAC ZN/POLY OINT 28GM TOP SCH ×2 (09:00→21:41)
[2022-12-16] MEDS: ASCORBIC ACID 500 MG TABLET PO SCH ×2 (09:27→18:00)
[2022-12-16] MEDS: FERROUS SULFATE 325MG TABLET PO SCH ×2 (09:27→18:00)
[2022-12-16] MEDS: DOCUSATE SODIUM 250MG CAPSULE PO SCH ×2 (09:27→18:00)
[2022-12-16] MEDS: FOLIC ACID 1MG TABLET PO SCH (09:27)
[2022-12-16] MEDS: POLYETHYLENE GLYCOL 3350 (17GM) 1 DOSE PACK PO SCH (09:27)
[2022-12-16] MEDS: HYDROCODONE/ACETAMINOPHEN 5/325MG TABLET PO PRN ×2 (09:30→18:02)
[2022-12-16 20:00] VITALS: BP 117/77
[2022-12-16] MEDS: MIRTAZAPINE 15MG TABLET PO SCH (21:40)
[2022-12-16] MEDS: TRAZODONE HCL 50MG TABLET PO SCH (21:41)
[2022-12-17] MEDS: HYDROCODONE/ACETAMINOPHEN 5/325MG TABLET PO PRN ×4 (00:29→22:33)
[2022-12-17 08:00] VITALS: BP 120/79
[2022-12-17] MEDS: NEOMY SULF/BACITRAC ZN/POLY OINT 28GM TOP SCH ×2 (09:00→20:58)
[2022-12-17] MEDS: FOLIC ACID 1MG TABLET PO SCH (09:10)
[2022-12-17] MEDS: ASCORBIC ACID 500 MG TABLET PO SCH ×2 (09:10→18:14)
[2022-12-17] MEDS: DOCUSATE SODIUM 250MG CAPSULE PO SCH ×2 (09:10→18:14)
[2022-12-17] MEDS: POLYETHYLENE GLYCOL 3350 (17GM) 1 DOSE PACK PO SCH (09:11)
[2022-12-17] MEDS: FERROUS SULFATE 325MG TABLET PO SCH ×2 (09:14→18:14)
[2022-12-17 20:00] VITALS: BP 146/89
[2022-12-17] MEDS: MIRTAZAPINE 15MG TABLET PO SCH (20:42)
[2022-12-17] MEDS: TRAZODONE HCL 50MG TABLET PO SCH (20:42)
[2022-12-18 05:52] LABS: CHLORIDE 108 mEq/L (98-107)
[2022-12-18 06:16] LABS: BASOPHILS % 0.7 % (0.0-2.0); EOSINOPHILS % 2.1 % (0.0-5.0); HEMATOCRIT. 31.9 % (36.0-48.0); HEMOGLOBIN. 10.6 g/dL (12.0-16.0); LYMPHOCYTES % 40.4 % (20.0-50.0); MEAN CORPUSCULAR VOLUME 90.2 fL (81.0-99.0); MEAN PLATELET VOLUME 10.4 fl (7.4-10.4); MONOCYTES % 10.7 % (2.0-8.0); NEUTROPHILS % 46.1 % (40.0-76.0); PLATELET 185 x1000/uL (130-400); RED BLOOD CELL COUNT 3.54 mill/uL (4.2-5.4); RED CELL DISTRIBUTION WIDTH 15.6 % (11.6-14.6)
[2022-12-18 08:00] VITALS: BP 127/88
[2022-12-18] MEDS: FOLIC ACID 1MG TABLET PO SCH (09:00)
[2022-12-18] MEDS: ASCORBIC ACID 500 MG TABLET PO SCH ×2 (09:00→17:02)
[2022-12-18] MEDS: POLYETHYLENE GLYCOL 3350 (17GM) 1 DOSE PACK PO SCH ×2 (09:00→09:05)
[2022-12-18] MEDS: NEOMY SULF/BACITRAC ZN/POLY OINT 28GM TOP SCH ×2 (09:00→21:00)
[2022-12-18] MEDS: FERROUS SULFATE 325MG TABLET PO SCH ×2 (09:00→17:03)
[2022-12-18] MEDS: DOCUSATE SODIUM 250MG CAPSULE PO SCH ×2 (09:00→17:02)
[2022-12-18] MEDS: HYDROCODONE/ACETAMINOPHEN 5/325MG TABLET PO PRN ×2 (15:28→23:14)
[2022-12-18] MEDS ORDERED: LACTULOSE 20G/30ML UDC PO PRN (16:30)
[2022-12-18 20:00] VITALS: BP 118/79
[2022-12-18] MEDS: ENOXAPARIN 30MG/0.3ML SYR SUBCUT SCH (21:00)
[2022-12-18] MEDS: TRAZODONE HCL 50MG TABLET PO SCH (22:00)
[2022-12-18] MEDS: MIRTAZAPINE 15MG TABLET PO SCH (22:02)
[2022-12-19 06:41] LABS: BASOPHILS % 0.7 % (0.0-2.0); HEMOGLOBIN. 10.7 g/dL (12.0-16.0); LYMPHOCYTES % 43.5 % (20.0-50.0); MEAN CORPUSCULAR HEMOGLOBIN 29.5 pg (28.0-32.0); MEAN CORPUSCULAR VOLUME 90.6 fL (81.0-99.0); MEAN PLATELET VOLUME 10.1 fl (7.4-10.4); NEUTROPHILS % 43.8 % (40.0-76.0); PLATELET 186 x1000/uL (130-400); RED BLOOD CELL COUNT 3.64 mill/uL (4.2-5.4); RED CELL DISTRIBUTION WIDTH 15.7 % (11.6-14.6)
[2022-12-19 07:08] LABS: CHLORIDE 107 mEq/L (98-107)
[2022-12-19 08:00] VITALS: BP 122/62
[2022-12-19] MEDS: NEOMY SULF/BACITRAC ZN/POLY OINT 28GM TOP SCH ×2 (09:00→21:00)
[2022-12-19] MEDS ORDERED: POTASSIUM CHLORIDE 20MEQ TABLET SR PO SCH (09:00)
[2022-12-19] MEDS: DOCUSATE SODIUM 250MG CAPSULE PO SCH ×2 (11:47→17:28)
[2022-12-19] MEDS: FOLIC ACID 1MG TABLET PO SCH (11:47)
[2022-12-19] MEDS: FERROUS SULFATE 325MG TABLET PO SCH ×2 (11:48→17:28)
[2022-12-19] MEDS: POLYETHYLENE GLYCOL 3350 (17GM) 1 DOSE PACK PO SCH (11:48)
[2022-12-19] MEDS: ASCORBIC ACID 500 MG TABLET PO SCH ×2 (11:48→17:28)
[2022-12-19] MEDS: HYDROCODONE/ACETAMINOPHEN 5/325MG TABLET PO PRN ×2 (11:51→22:34)
[2022-12-19] MEDS: ENOXAPARIN 30MG/0.3ML SYR SUBCUT SCH ×2 (11:56→20:58)
[2022-12-19 20:00] VITALS: BP 124/76
[2022-12-19] MEDS: TRAZODONE HCL 50MG TABLET PO SCH (20:58)
[2022-12-19] MEDS: MIRTAZAPINE 15MG TABLET PO SCH (20:58)
[2022-12-20 08:00] VITALS: BP 112/70
[2022-12-20 08:10] LABS: BASOPHILS % 0.4 % (0.0-2.0); EOSINOPHILS % 1.5 % (0.0-5.0); HEMATOCRIT. 32.7 % (36.0-48.0); HEMOGLOBIN. 10.7 g/dL (12.0-16.0); LYMPHOCYTES % 39.4 % (20.0-50.0); MEAN CORPUSCULAR HEMOGLOBIN 29.7 pg (28.0-32.0); MEAN CORPUSCULAR VOLUME 90.6 fL (81.0-99.0); MEAN PLATELET VOLUME 10.9 fl (7.4-10.4); MONOCYTES % 8.8 % (2.0-8.0); NEUTROPHILS % 49.9 % (40.0-76.0); PLATELET 186 x1000/uL (130-400); RED CELL DISTRIBUTION WIDTH 15.2 % (11.6-14.6)
[2022-12-20] MEDS: HYDROCODONE/ACETAMINOPHEN 5/325MG TABLET PO PRN ×3 (08:16→21:27)
[2022-12-20 08:39] LABS: CHLORIDE 106 mEq/L (98-107)
[2022-12-20] MEDS: POLYETHYLENE GLYCOL 3350 (17GM) 1 DOSE PACK PO SCH (09:00)
[2022-12-20] MEDS: DOCUSATE SODIUM 250MG CAPSULE PO SCH ×2 (10:21→18:18)
[2022-12-20] MEDS: FERROUS SULFATE 325MG TABLET PO SCH ×2 (10:24→18:17)
[2022-12-20] MEDS: ASCORBIC ACID 500 MG TABLET PO SCH ×2 (10:24→18:18)
[2022-12-20] MEDS: NEOMY SULF/BACITRAC ZN/POLY OINT 28GM TOP SCH ×2 (10:26→21:49)
[2022-12-20] MEDS: ENOXAPARIN 30MG/0.3ML SYR SUBCUT SCH ×2 (10:26→21:28)
[2022-12-20] MEDS: FOLIC ACID 1MG TABLET PO SCH (10:49)
[2022-12-20] MEDS: FUROSEMIDE 20MG TABLET PO SCH (18:17)
[2022-12-20 20:00] VITALS: BP 115/85
[2022-12-20] MEDS: MIRTAZAPINE 15MG TABLET PO SCH (21:26)
[2022-12-20] MEDS: TRAZODONE HCL 50MG TABLET PO SCH (21:26)
[2022-12-21 06:44] LABS: BASOPHILS % 0.6 % (0.0-2.0); EOSINOPHILS % 1.7 % (0.0-5.0); HEMATOCRIT. 33.7 % (36.0-48.0); HEMOGLOBIN. 10.9 g/dL (12.0-16.0); LYMPHOCYTES % 41.8 % (20.0-50.0); MEAN CORPUSCULAR HEMOGLOBIN 29.1 pg (28.0-32.0); MEAN CORPUSCULAR VOLUME 90.2 fL (81.0-99.0); MEAN PLATELET VOLUME 10.4 fl (7.4-10.4); MONOCYTES % 8.9 % (2.0-8.0); PLATELET 189 x1000/uL (130-400); RED BLOOD CELL COUNT 3.73 mill/uL (4.2-5.4); RED CELL DISTRIBUTION WIDTH 15.8 % (11.6-14.6)
[2022-12-21 07:49] LABS: CHLORIDE 105 mEq/L (98-107)
[2022-12-21 07:52] VITALS: BP 113/70
[2022-12-21] MEDS: ASCORBIC ACID 500 MG TABLET PO SCH ×2 (08:05→16:00)
[2022-12-21] MEDS: FERROUS SULFATE 325MG TABLET PO SCH ×2 (08:05→16:00)
[2022-12-21] MEDS: DOCUSATE SODIUM 250MG CAPSULE PO SCH ×2 (08:06→16:00)
[2022-12-21] MEDS: FOLIC ACID 1MG TABLET PO SCH (08:06)
[2022-12-21] MEDS: HYDROCODONE/ACETAMINOPHEN 5/325MG TABLET PO PRN ×3 (08:06→21:52)
[2022-12-21] MEDS: ENOXAPARIN 30MG/0.3ML SYR SUBCUT SCH ×2 (08:06→21:53)
[2022-12-21] MEDS: NEOMY SULF/BACITRAC ZN/POLY OINT 28GM TOP SCH ×2 (08:08→21:53)
[2022-12-21] MEDS: FUROSEMIDE 20MG TABLET PO SCH (08:13)
[2022-12-21] MEDS: POLYETHYLENE GLYCOL 3350 (17GM) 1 DOSE PACK PO SCH (08:13)
[2022-12-21] MEDS ORDERED: POTASSIUM CHLORIDE 20MEQ TABLET SR PO NR (08:30)
[2022-12-21 21:38] VITALS: BP 138/85
[2022-12-21] MEDS: MIRTAZAPINE 15MG TABLET PO SCH (21:52)
[2022-12-21] MEDS: TRAZODONE HCL 50MG TABLET PO SCH (21:52)
[2022-12-22 05:53] LABS: BASOPHILS % 0.6 % (0.0-2.0); HEMATOCRIT. 33.4 % (36.0-48.0); HEMOGLOBIN. 10.8 g/dL (12.0-16.0); MEAN CORPUSCULAR HEMOGLOBIN 29.1 pg (28.0-32.0); MEAN CORPUSCULAR VOLUME 89.7 fL (81.0-99.0); MEAN PLATELET VOLUME 10.1 fl (7.4-10.4); MONOCYTES % 9.9 % (2.0-8.0); NEUTROPHILS % 41.5 % (40.0-76.0); PLATELET 187 x1000/uL (130-400); RED BLOOD CELL COUNT 3.72 mill/uL (4.2-5.4); RED CELL DISTRIBUTION WIDTH 15.2 % (11.6-14.6)
[2022-12-22 08:00] VITALS: BP 105/66
[2022-12-22 08:06] LABS: CHLORIDE 106 mEq/L (98-107)
[2022-12-22] MEDS: NEOMY SULF/BACITRAC ZN/POLY OINT 28GM TOP SCH ×2 (09:00→21:53)
[2022-12-22] MEDS: DOCUSATE SODIUM 250MG CAPSULE PO SCH ×2 (09:10→17:27)
[2022-12-22] MEDS: ASCORBIC ACID 500 MG TABLET PO SCH ×2 (09:10→17:27)
[2022-12-22] MEDS: FERROUS SULFATE 325MG TABLET PO SCH ×2 (09:10→17:27)
[2022-12-22] MEDS: FOLIC ACID 1MG TABLET PO SCH (09:10)
[2022-12-22] MEDS: POLYETHYLENE GLYCOL 3350 (17GM) 1 DOSE PACK PO SCH (09:10)
[2022-12-22] MEDS: ENOXAPARIN 30MG/0.3ML SYR SUBCUT SCH ×2 (09:11→21:54)
[2022-12-22] MEDS: HYDROCODONE/ACETAMINOPHEN 5/325MG TABLET PO PRN ×2 (09:39→21:55)
[2022-12-22 10:17] LABS: VITAMIN B12 SERUM 923 pg/mL (211-911)
[2022-12-22] MEDS: CYANOCOBALAMIN 1000MCG/ML VIAL IM SCH (12:20)
[2022-12-22 20:00] VITALS: BP 122/87
[2022-12-22] MEDS: MIRTAZAPINE 15MG TABLET PO SCH (21:54)
[2022-12-22] MEDS: TRAZODONE HCL 50MG TABLET PO SCH (21:54)
[2022-12-23 06:15] LABS: BASOPHILS % 0.6 % (0.0-2.0); EOSINOPHILS % 1.9 % (0.0-5.0); HEMOGLOBIN. 10.6 g/dL (12.0-16.0); LYMPHOCYTES % 40.9 % (20.0-50.0); MEAN CORPUSCULAR HEMOGLOBIN 29.6 pg (28.0-32.0); MEAN CORPUSCULAR VOLUME 88.8 fL (81.0-99.0); MEAN PLATELET VOLUME 10.5 fl (7.4-10.4); MONOCYTES % 9.6 % (2.0-8.0); PLATELET 175 x1000/uL (130-400); RED CELL DISTRIBUTION WIDTH 14.8 % (11.6-14.6)
[2022-12-23 06:18] LABS: CHLORIDE 102 mEq/L (98-107)
[2022-12-23 06:28] LABS: TOTAL IRON BINDING CAPACITY 171 ug/dL (250-450)
[2022-12-23 06:29] LABS: FERRITIN 318 ng/mL (10-291)
[2022-12-23 08:00] VITALS: BP 123/64
[2022-12-23 08:02] LABS: FOLIC ACID (FOLATE) SERUM > 20.00 ng/mL (>5.38)
[2022-12-23] MEDS: FERROUS SULFATE 325MG TABLET PO SCH ×2 (10:45→16:26)
[2022-12-23] MEDS: DOCUSATE SODIUM 250MG CAPSULE PO SCH ×2 (10:45→16:26)
[2022-12-23] MEDS: FUROSEMIDE 20MG TABLET PO SCH (10:46)
[2022-12-23] MEDS: POLYETHYLENE GLYCOL 3350 (17GM) 1 DOSE PACK PO SCH (10:46)
[2022-12-23] MEDS: ASCORBIC ACID 500 MG TABLET PO SCH ×2 (10:46→16:26)
[2022-12-23] MEDS: ENOXAPARIN 30MG/0.3ML SYR SUBCUT SCH ×2 (11:04→21:38)
[2022-12-23] MEDS: HYDROCODONE/ACETAMINOPHEN 5/325MG TABLET PO PRN ×3 (11:05→22:30)
[2022-12-23] MEDS: NEOMY SULF/BACITRAC ZN/POLY OINT 28GM TOP SCH ×2 (13:11→21:00)
[2022-12-23 20:00] VITALS: BP 129/82
[2022-12-23] MEDS: TRAZODONE HCL 50MG TABLET PO SCH (21:39)
[2022-12-23] MEDS: MIRTAZAPINE 15MG TABLET PO SCH (21:39)
[2022-12-24 07:00] LABS: CHLORIDE 106 mEq/L (98-107)
[2022-12-24 07:01] LABS: BASOPHILS % 0.9 % (0.0-2.0); EOSINOPHILS % 2.5 % (0.0-5.0); HEMATOCRIT. 32.8 % (36.0-48.0); LYMPHOCYTES % 40.8 % (20.0-50.0); MEAN CORPUSCULAR HEMOGLOBIN 29.5 pg (28.0-32.0); MEAN CORPUSCULAR VOLUME 87.9 fL (81.0-99.0); MEAN PLATELET VOLUME 10.4 fl (7.4-10.4); MONOCYTES % 11.7 % (2.0-8.0); NEUTROPHILS % 44.1 % (40.0-76.0); PLATELET 168 x1000/uL (130-400); RED BLOOD CELL COUNT 3.73 mill/uL (4.2-5.4); RED CELL DISTRIBUTION WIDTH 14.8 % (11.6-14.6)
[2022-12-24 08:00] VITALS: BP 108/67
[2022-12-24] MEDS: POLYETHYLENE GLYCOL 3350 (17GM) 1 DOSE PACK PO SCH (08:44)
[2022-12-24] MEDS: DOCUSATE SODIUM 250MG CAPSULE PO SCH ×2 (08:45→16:14)
[2022-12-24] MEDS: ASCORBIC ACID 500 MG TABLET PO SCH (08:45)
[2022-12-24] MEDS: FUROSEMIDE 20MG TABLET PO SCH (08:45)
[2022-12-24] MEDS: FERROUS SULFATE 325MG TABLET PO SCH (08:45)
[2022-12-24] MEDS: NEOMY SULF/BACITRAC ZN/POLY OINT 28GM TOP SCH ×2 (08:45→21:09)
[2022-12-24] MEDS: ENOXAPARIN 30MG/0.3ML SYR SUBCUT SCH ×2 (08:45→21:09)
[2022-12-24] MEDS: HYDROCODONE/ACETAMINOPHEN 5/325MG TABLET PO PRN ×3 (08:57→21:15)
[2022-12-24] MEDS ORDERED: NALOXONE HCL 0.4MG/ML VIAL IV PRN (13:00)
[2022-12-24 20:00] VITALS: BP 102/52
[2022-12-24] MEDS: MIRTAZAPINE 15MG TABLET PO SCH (21:09)
[2022-12-24] MEDS: TRAZODONE HCL 50MG TABLET PO SCH (21:09)
[2022-12-25 08:00] VITALS: BP 129/83
[2022-12-25] MEDS: DOCUSATE SODIUM 250MG CAPSULE PO SCH ×2 (08:19→17:00)
[2022-12-25] MEDS: FUROSEMIDE 20MG TABLET PO SCH (08:20)
[2022-12-25] MEDS: ENOXAPARIN 30MG/0.3ML SYR SUBCUT SCH ×2 (08:20→20:27)
[2022-12-25] MEDS: POLYETHYLENE GLYCOL 3350 (17GM) 1 DOSE PACK PO SCH (08:22)
[2022-12-25] MEDS: NEOMY SULF/BACITRAC ZN/POLY OINT 28GM TOP SCH ×2 (08:22→20:28)
[2022-12-25] MEDS: ASCORBIC ACID 500 MG TABLET PO SCH (15:15)
[2022-12-25] MEDS: FOLIC ACID 1MG TABLET PO SCH (15:15)
[2022-12-25] MEDS: FERROUS SULFATE 325MG TABLET PO SCH (17:00)
[2022-12-25 20:00] VITALS: BP 109/75
[2022-12-25] MEDS: MIRTAZAPINE 15MG TABLET PO SCH (20:26)
[2022-12-25] MEDS: TRAZODONE HCL 50MG TABLET PO SCH (20:27)
[2022-12-25] MEDS: HYDROCODONE/ACETAMINOPHEN 5/325MG TABLET PO PRN (20:28)
[2022-12-26] MEDS: ENOXAPARIN 30MG/0.3ML SYR SUBCUT SCH ×2 (07:57→21:07)
[2022-12-26] MEDS: FUROSEMIDE 20MG TABLET PO SCH (07:58)
[2022-12-26] MEDS: FOLIC ACID 1MG TABLET PO SCH (07:58)
[2022-12-26] MEDS: ASCORBIC ACID 500 MG TABLET PO SCH (07:59)
[2022-12-26] MEDS: DOCUSATE SODIUM 250MG CAPSULE PO SCH ×2 (07:59→22:50)
[2022-12-26] MEDS: FERROUS SULFATE 325MG TABLET PO SCH ×2 (07:59→22:50)
[2022-12-26] MEDS: POLYETHYLENE GLYCOL 3350 (17GM) 1 DOSE PACK PO SCH (09:00)
[2022-12-26] MEDS: NEOMY SULF/BACITRAC ZN/POLY OINT 28GM TOP SCH ×2 (09:00→22:50)
[2022-12-26 09:29] VITALS: BP 116/75
[2022-12-26] MEDS: HYDROCODONE/ACETAMINOPHEN 5/325MG TABLET PO PRN ×2 (13:15→22:53)
[2022-12-26 20:00] VITALS: BP 114/75
[2022-12-26] MEDS: TRAZODONE HCL 50MG TABLET PO SCH (21:08)
[2022-12-26] MEDS: MIRTAZAPINE 15MG TABLET PO SCH (21:09)
[2022-12-27 08:00] VITALS: BP 111/79
[2022-12-27] MEDS: HYDROCODONE/ACETAMINOPHEN 5/325MG TABLET PO PRN ×2 (08:47→21:43)
[2022-12-27] MEDS: ENOXAPARIN 30MG/0.3ML SYR SUBCUT SCH ×2 (08:48→21:18)
[2022-12-27] MEDS: FUROSEMIDE 20MG TABLET PO SCH (08:48)
[2022-12-27] MEDS: ASCORBIC ACID 500 MG TABLET PO SCH (08:48)
[2022-12-27] MEDS: FERROUS SULFATE 325MG TABLET PO SCH ×2 (08:48→16:29)
[2022-12-27] MEDS: DOCUSATE SODIUM 250MG CAPSULE PO SCH ×2 (08:48→16:30)
[2022-12-27] MEDS: FOLIC ACID 1MG TABLET PO SCH (08:48)
[2022-12-27] MEDS: POLYETHYLENE GLYCOL 3350 (17GM) 1 DOSE PACK PO SCH (08:53)
[2022-12-27] MEDS: NEOMY SULF/BACITRAC ZN/POLY OINT 28GM TOP SCH ×2 (09:00→21:18)
[2022-12-27 20:00] VITALS: BP 112/72
[2022-12-27] MEDS: TRAZODONE HCL 50MG TABLET PO SCH (21:18)
[2022-12-28 08:00] VITALS: BP 108/79
[2022-12-28] MEDS: FERROUS SULFATE 325MG TABLET PO SCH ×2 (08:46→17:20)
[2022-12-28] MEDS: DOCUSATE SODIUM 250MG CAPSULE PO SCH ×2 (08:46→17:20)
[2022-12-28] MEDS: ASCORBIC ACID 500 MG TABLET PO SCH (08:46)
[2022-12-28] MEDS: FOLIC ACID 1MG TABLET PO SCH (08:46)
[2022-12-28] MEDS: FUROSEMIDE 20MG TABLET PO SCH (08:47)
[2022-12-28] MEDS: ENOXAPARIN 30MG/0.3ML SYR SUBCUT SCH ×2 (08:47→21:05)
[2022-12-28] MEDS: POLYETHYLENE GLYCOL 3350 (17GM) 1 DOSE PACK PO SCH ×2 (08:47→08:57)
[2022-12-28] MEDS: NEOMY SULF/BACITRAC ZN/POLY OINT 28GM TOP SCH ×2 (08:49→21:06)
[2022-12-28] MEDS: HYDROCODONE/ACETAMINOPHEN 5/325MG TABLET PO PRN ×2 (08:49→21:05)
[2022-12-28] MEDS: FLUOXETINE HCL 10 MG CAPSULE PO SCH (17:23)
[2022-12-28 19:30] VITALS: BP 111/57
[2022-12-28] MEDS: TRAZODONE HCL 50MG TABLET PO SCH (21:07)
[2022-12-29 06:12] LABS: BASOPHILS % 0.5 % (0.0-2.0); EOSINOPHILS % 1.9 % (0.0-5.0); HEMATOCRIT. 32.9 % (36.0-48.0); LYMPHOCYTES % 43.4 % (20.0-50.0); MEAN CORPUSCULAR HEMOGLOBIN 29.1 pg (28.0-32.0); MEAN CORPUSCULAR VOLUME 87.4 fL (81.0-99.0); MEAN PLATELET VOLUME 10.3 fl (7.4-10.4); MONOCYTES % 9.1 % (2.0-8.0); NEUTROPHILS % 45.1 % (40.0-76.0); PLATELET 163 x1000/uL (130-400); RED BLOOD CELL COUNT 3.76 mill/uL (4.2-5.4); RED CELL DISTRIBUTION WIDTH 14.5 % (11.6-14.6)
[2022-12-29 07:21] LABS: CHLORIDE 108 mEq/L (98-107)
[2022-12-29 07:59] LABS: VITAMIN B12 SERUM 855 pg/mL (211-911)
[2022-12-29 08:00] VITALS: BP 108/73
[2022-12-29] MEDS: NEOMY SULF/BACITRAC ZN/POLY OINT 28GM TOP SCH ×2 (09:00→22:10)
[2022-12-29] MEDS: HYDROCODONE/ACETAMINOPHEN 5/325MG TABLET PO PRN ×3 (09:24→22:14)
[2022-12-29] MEDS: FUROSEMIDE 20MG TABLET PO SCH (09:25)
[2022-12-29] MEDS: DOCUSATE SODIUM 250MG CAPSULE PO SCH ×2 (09:25→17:00)
[2022-12-29] MEDS: FLUOXETINE HCL 10 MG CAPSULE PO SCH (09:25)
[2022-12-29] MEDS: FOLIC ACID 1MG TABLET PO SCH (09:26)
[2022-12-29] MEDS: FERROUS SULFATE 325MG TABLET PO SCH ×2 (09:26→17:11)
[2022-12-29] MEDS: ENOXAPARIN 30MG/0.3ML SYR SUBCUT SCH ×2 (09:30→22:10)
[2022-12-29] MEDS: CYANOCOBALAMIN 1000MCG/ML VIAL IM SCH (09:30)
[2022-12-29] MEDS: ASCORBIC ACID 500 MG TABLET PO SCH (09:35)
[2022-12-29] MEDS: POLYETHYLENE GLYCOL 3350 (17GM) 1 DOSE PACK PO SCH (09:35)
[2022-12-29] MEDS ORDERED: POTASSIUM CHLORIDE 20MEQ TABLET SR PO SCH (10:00)
[2022-12-29] MEDS ORDERED: FOLI-43 PO (10:40)
[2022-12-29] MEDS ORDERED: ASCO500T20 PO (10:40)
[2022-12-29] MEDS ORDERED: FLUOX10 PO (10:40)
[2022-12-29] MEDS ORDERED: FURO20TA4 PO (10:40)
[2022-12-29 19:53] VITALS: BP 145/88
[2022-12-30 05:52] VITALS: BP 148/55
[2022-12-30 08:00] VITALS: BP 113/67
[2022-12-30] MEDS: FLUOXETINE HCL 10 MG CAPSULE PO SCH (08:39)
[2022-12-30] MEDS: DOCUSATE SODIUM 250MG CAPSULE PO SCH (08:39)
[2022-12-30] MEDS: FERROUS SULFATE 325MG TABLET PO SCH (08:39)
[2022-12-30] MEDS: FUROSEMIDE 20MG TABLET PO SCH (08:39)
[2022-12-30] MEDS: ASCORBIC ACID 500 MG TABLET PO SCH (08:40)
[2022-12-30] MEDS: FOLIC ACID 1MG TABLET PO SCH (08:40)
[2022-12-30] MEDS: HYDROCODONE/ACETAMINOPHEN 5/325MG TABLET PO PRN (08:40)
[2022-12-30] MEDS: NEOMY SULF/BACITRAC ZN/POLY OINT 28GM TOP SCH (08:41)
[2022-12-30] MEDS: POLYETHYLENE GLYCOL 3350 (17GM) 1 DOSE PACK PO SCH (08:41)
[2022-12-30] MEDS: ENOXAPARIN 30MG/0.3ML SYR SUBCUT SCH (08:43)
[2022-12-30 12:55] VITALS: BP 115/66
[2022-12-30] MEDS ORDERED: TRAM50TA3 MT (14:10)
[2022-12-30] MEDS ORDERED: TRAZODONE HCL 50MG TABLET PO SCH (21:00)
== END 2022-12-30 15:16 | disposition home or self-care (01) | DRG 40 ==
PROVIDERS: ADMIT Psychiatry & Neurology Neurology; ATTEND Internal Medicine
DX: G32.0 Subacute combined degeneration of spinal cord in diseases classified elsewhere (principal); F33.1 Major depressive disorder, recurrent, moderate; K92.2 Gastrointestinal hemorrhage, unspecified; R26.2 Difficulty in walking, not elsewhere classified; D51.0 Vitamin B12 deficiency anemia due to intrinsic factor deficiency; E78.00 Pure hypercholesterolemia, unspecified; E87.6 Hypokalemia; F41.9 Anxiety disorder, unspecified; G47.00 Insomnia, unspecified; I10 Essential (primary) hypertension; J45.909 Unspecified asthma, uncomplicated; L89.90 Pressure ulcer of unspecified site, unspecified stage; Z91.81 History of falling; Z96.642 Presence of left artificial hip joint; Z96.653 Presence of artificial knee joint, bilateral; D53.9 Nutritional anemia, unspecified; K59.00 Constipation, unspecified; R13.10 Dysphagia, unspecified
CPT/HCPCS: 36415; 80048; 80053; 82607; 82728; 82746; 83540; 83550; 83880; 84132; 85025; 92523; 92610; 93970; 97110; 97112; 97116; 97162; 97166; 97530; 97535; 97542; C1893; J1650; J2270; J3420; J7030; Q0162; Q0163